=== PATIENT | female | born 1945 | race Hispanic/Latino ===

== ENCOUNTER 2017-10-31 18:53 | Emergency (ER) | payer OTHER ==
--- NOTE | 2017-10-31 20:36 | RAD ---
LEFT KNEE FOUR VIEWS: 10/31/17 HISTORY: Knee injury. There is severe arthritic changes in the knee. There is marked medial compartment narrowing. Also deg enerative changes of the patellofemoral and lateral compartments. There is no signs of fracture. The bones appear demineralized. IMPRESSION: Marked arthritic changes of the knee. POS: [facility]
[2017-10-31] MEDS ORDERED: Acetaminophen 500 MG TAB ONE (21:32)
== END 2017-10-31 21:48 | disposition home or self-care (01) ==
LOC: ERS 18:53
DX: M25.562 Pain in left knee (principal); E11.9 Type 2 diabetes mellitus without complications; E78.5 Hyperlipidemia, unspecified; I10 Essential (primary) hypertension; W18.30XA Fall on same level, unspecified, initial encounter

== ENCOUNTER 2018-03-02 15:04 | Outpatient (CLI) | payer MEDICARE, MEDICAID | END 2018-03-02 15:05 | disposition home or self-care (01) | LOC: BICMAMMO 15:04 | PROVIDERS: ATTEND Family Medicine | DX: Z12.31 Encounter for screening mammogram for malignant neoplasm of breast (principal); Z80.3 Family history of malignant neoplasm of breast | CPT/HCPCS: 77063; 77067 ==

== ENCOUNTER 2018-08-21 08:38 | Outpatient (CLI) | payer MEDICARE, MEDICAID ==
--- NOTE | 2018-08-21 10:49 | BD ---
DEXA BONE MINERAL DENSITY STUDY: HISTORY: Osteoporosis screening. Postmenopausal female. COMPARISON: None. BMD (g/cm2) T-SCORE Z-SCORE L1 0.718 -2.5 -0.4 L2 0.841 -1.7 0.6 L3 0.963 -1.1 1.4 L4 0.925 -1.2 1.3 TOTAL 0.853 -1.8 0.6 WHO CLASSIFICATION: Osteopenia. BMD (g/cm2) T-SCORE Z-SCORE LEFT FEMORAL NECK 0.062 -2.0 -0.1 TOTAL 0.790 -1.2 0.5 WHO CLASSIFICATION: Osteopenia. TEN-YEAR FRACTURE RISK: MAJOR OSTEOPOROTIC FRACTURE: 9.5% HIP FRACTURE: 2.4% IMPRESSION: Osteopenia with fracture risk as above. POS: [facility]
== END 2018-08-21 08:39 | disposition home or self-care (01) ==
LOC: BICMAMMO 08:38
PROVIDERS: ATTEND Internal Medicine Rheumatology
DX: Z13.820 Encounter for screening for osteoporosis (principal); M81.8 Other osteoporosis without current pathological fracture; M85.89 Other specified disorders of bone density and structure, multiple sites
CPT/HCPCS: 77080

== ENCOUNTER 2019-03-08 18:37 | Emergency (ER) | payer MEDICARE, MEDICAID ==
[2019-03-08] MEDS ORDERED: HYDROcodone/Acetaminophen 5/325 mg Tablet ONE (19:10)
--- NOTE | 2019-03-08 19:22 | RAD ---
3 views right ankle: 03/08/2019 COMPARISON: None HISTORY: Injury, trauma, pain FINDINGS: Lateral postoperative hardware of distal right tibia and fibula noted. Prominent lateral so ft tissue swelling. The bones appear demineralized. Talar dome and ankle mortise appear intact. No displaced fracture or evidence of dislocation. IMPRESSION: Prominent lateral soft tissue swelling. Osteopenia. No displaced fracture or dislocation seen.
--- NOTE | 2019-03-08 19:32 | RAD ---
Frontal and lateral imaging of right tibia/fibula: 03/08/2019 COMPARISON: 08/27/2015 HISTORY: Fall, trauma, pain FINDINGS: Extensive stable postoperative hardware noted within the distal right femur, proximal right tibia, and distal right fibula. No acute fracture or evidence of dislocation is seen. Old fracture deformities of the right tibia and fibula noted, stable. IMPRESSION: Extensive chronic findings as described above. No evidence for acute fracture or dislocat ion.
== END 2019-03-08 20:27 | disposition home or self-care (01) ==
LOC: ERS 18:37
DX: S90.01XA Contusion of right ankle, initial encounter (principal); E11.9 Type 2 diabetes mellitus without complications; E78.5 Hyperlipidemia, unspecified; I10 Essential (primary) hypertension; M10.9 Gout, unspecified; Z79.899 Other long term (current) drug therapy; Z79.84 Long term (current) use of oral hypoglycemic drugs; Z79.82 Long term (current) use of aspirin; W19.XXXA Unspecified fall, initial encounter

== ENCOUNTER 2022-05-31 09:51 | Observation (INO) | payer MEDICARE, MEDICAID ==
[2022-05-31] MEDS ORDERED: Piperacillin/Tazobactam 3.375 GM VIAL ONE ×2 (10:28→10:50)
[2022-05-31 10:43] LABS: #Basophils 0.1 thou/uL (0.0-0.2); #Eosinphils 0.4 thou/uL (0.0-0.7); #Lymphocytes 2.1 thou/uL (1.20-3.40); #Monocytes 0.5 thou/uL (0.11-0.59); #Neutrophils 5.9 thou/uL (1.40-6.50); %Basophils 0.6 % (0.0-1.0); %Eosinophils 4.4 % (0.0-10.0); %Lymphocytes 23.6 % (21.0-51.0); %Monocytes 5.8 % (0.0-10.0); %Neutrophils 65.6 % (42.0-75.0); Hemoglobin 12.3 g/dL (12.0-16.0); Mean Corpuscular HGB CONC 32.2 g/dL (32.0-36.0); Mean Corpuscular Hemoglobin 29.7 pg (27.0-31.0); Mean Corpuscular Volume 92.2 fL (78.0-98.0); Mean Platelet Volume 7.6 fL (7.4-10.4); Platelet Count 311 thou/uL (130-400); RBC Distribution Width 13.3 % (11.5-14.5); Red Blood Cell (RBC) Count 4.15 mill/uL (4.20-5.40)
[2022-05-31] MEDS ORDERED: Vancomycin 1 GM/200 ML BAG ONE ×2 (10:50→11:28)
[2022-05-31 10:56] LABS: PTT 47.1 sec (22.9-36.1); Prothrombin Time 13.4 sec (12.0-14.7)
[2022-05-31 11:00] LABS: ALT (SGPT) 34 U/L (8-55); AST (SGOT) 31 U/L (5-34); Albumin 4.1 g/dL (3.4-4.8); Alkaline Phosphatase 77 U/L (40-110); Anion Gap 14 mmol/L (10-20); BUN (Urea Nitrogen) 17 mg/dL (9.8-20.1); Bilirubin, Total 0.2 mg/dL (0.2-1.2); Calc. Creatinine Clearance 0 mL/min (70-130); Calcium 9.2 mg/dL (7.8-10.44); Carbon Dioxide 24 mmol/L (23-31); Chloride 97 mmol/L (98-107); Estimated GFR 53; Globulin 3.5 g/dL (2.4-3.5); Glucose 316 mg/dL (83-110); Potassium 4.4 mmol/L (3.5-5.1); Protein, Total 7.6 g/dL (5.8-8.1); Sodium 131 mmol/L (136-145)
[2022-05-31 12:57] LABS: Bacteria/HPF 4+ HPF (None Seen); Bilirubin Negative (Negative); Blood, Urine 2+ (Negative); Clarity Clear (Clear); Glucose, Urine (Dipstick) Greater than 1000 mg/dL (Negative); Ketone, Urine Negative (Negative); Leukocyte 75 Leu/uL (Negative); Nitrite 1+ (Negative); Protein, Urine (Dipstick) Negative (Neg-Trace); RBC/HPF 21-50 HPF (0-3); Specific Gravity, Urine 1.012 (1.002-1.036); Squamous Epithelial None Seen HPF (0-3); Urobilinogen Normal mg/dL (Less than 2)
[2022-05-31] MEDS ORDERED: Dextrose 5% in Water 1,000 ML IV PRN (13:20)
[2022-05-31] MEDS ORDERED: Dextrose 50% Abboject 50 ML SYRINGE SLOW IVP PRN (13:20)
[2022-05-31] MEDS ORDERED: Senokot S 8.6-50 MG TAB PO PRN (13:21)
[2022-05-31] MEDS ORDERED: Ondansetron ODT 4 MG TAB PO PRN (13:21)
[2022-05-31] MEDS ORDERED: Ondansetron PF 4 MG/2 ML Vial IVP PRN (13:21)
[2022-05-31 13:27] VITALS: BMI 28.7
[2022-05-31] MEDS: Sodium Chloride 0.9% 1,000 ML IV SCH (16:01)
[2022-05-31] MEDS: Piperacillin/Tazobactam 3.375 GM in Sodium Chloride 0.9% 100 ML IVPB SCH ×2 (16:02→23:11)
[2022-05-31] MEDS: HumaLOG 300 UNITS/3 ML VIAL SC PRN (16:07)
[2022-05-31] MEDS ORDERED: Heparin 1,000 UNITS/ML VIAL ONE (16:24)
[2022-05-31] MEDS: traMADol HCl 50 MG TAB PO PRN ×2 (18:15→23:09)
[2022-05-31] MEDS ORDERED: traMADol HCl 50 MG TAB PO PRN (21:00)
[2022-05-31] MEDS ORDERED: Cefepime 1 GM in Sodium Chloride 0.9% 100 ML IVPB SCH (21:00)
[2022-05-31] MEDS ORDERED: Vancomycin 1 GM in Premix Bag 1 BAG IVPB SCH (21:00)
[2022-05-31] MEDS: DULoxetine 30 MG CAP PO SCH (23:09)
[2022-05-31] MEDS: Colchicine 0.6 MG TAB PO SCH (23:10)
[2022-06-01 05:52] LABS: #Basophils 0.1 thou/uL (0.0-0.2); #Eosinphils 0.4 thou/uL (0.0-0.7); #Lymphocytes 1.9 thou/uL (1.20-3.40); #Monocytes 0.5 thou/uL (0.11-0.59); #Neutrophils 4.3 thou/uL (1.40-6.50); %Basophils 0.9 % (0.0-1.0); %Lymphocytes 26.3 % (21.0-51.0); %Monocytes 7.4 % (0.0-10.0); %Neutrophils 60.4 % (42.0-75.0); Hemoglobin 10.3 g/dL (12.0-16.0); Mean Corpuscular HGB CONC 32.6 g/dL (32.0-36.0); Mean Corpuscular Hemoglobin 29.4 pg (27.0-31.0); Mean Corpuscular Volume 90.3 fL (78.0-98.0); Mean Platelet Volume 7.8 fL (7.4-10.4); Platelet Count 270 thou/uL (130-400); Red Blood Cell (RBC) Count 3.51 mill/uL (4.20-5.40); White Blood Cell (WBC) Count 7.1 thou/uL (4.8-10.8)
[2022-06-01 06:09] LABS: Anion Gap 14 mmol/L (10-20); BUN (Urea Nitrogen) 12 mg/dL (9.8-20.1); Calc. Creatinine Clearance 70 mL/min (70-130); Calcium 8.6 mg/dL (7.8-10.44); Carbon Dioxide 22 mmol/L (23-31); Chloride 102 mmol/L (98-107); Estimated GFR 88; Glucose 115 mg/dL (83-110); Potassium 3.6 mmol/L (3.5-5.1); Sodium 134 mmol/L (136-145)
[2022-06-01] MEDS: Ferrous Sulfate 325 MG TAB PO SCH (08:16)
[2022-06-01] MEDS: Piperacillin/Tazobactam 3.375 GM in Sodium Chloride 0.9% 100 ML IVPB SCH ×2 (08:17→16:00)
[2022-06-01] MEDS: Cholecalciferol 1,000 UNITS (25 MCG) TAB PO SCH (08:18)
[2022-06-01] MEDS: Ezetimibe 10 MG TAB PO SCH (08:18)
[2022-06-01] MEDS: DULoxetine 30 MG CAP PO SCH ×2 (08:18→21:24)
[2022-06-01] MEDS: Amlodipine 5 MG TAB PO SCH (08:18)
[2022-06-01] MEDS: Allopurinol 100 MG TAB PO SCH (08:19)
[2022-06-01] MEDS: Lisinopril 20 MG TAB PO SCH (08:19)
[2022-06-01] MEDS: Colchicine 0.6 MG TAB PO SCH ×2 (08:19→21:24)
[2022-06-01] MEDS: predniSONE 1 MG TAB PO SCH (08:19)
[2022-06-01] MEDS: Aspirin 81 mg Enteric Coated Tablet PO SCH (08:20)
[2022-06-01] MEDS: Vit A,C & E/Lutein/Minerals Tablet PO SCH (08:29)
[2022-06-01] MEDS: traMADol HCl 50 MG TAB PO PRN ×2 (08:29→21:24)
[2022-06-01] MEDS ORDERED: Vancomycin HCl 750 MG in Sodium Chloride 0.9% 250 ML 250 ML IVPB SCH (11:00)
[2022-06-01] MEDS: Sodium Chloride 0.9% 1,000 ML IV SCH (14:10)
[2022-06-01] MEDS ORDERED: Rocuronium Bromide 10 MG/ML (10ML VIAL) ONE (14:16)
[2022-06-01] MEDS ORDERED: Dexamethasone 20 MG/5 ML VIAL ONE (14:16)
[2022-06-01] MEDS ORDERED: Ondansetron PF 4 MG/2 ML Vial ONE (14:16)
[2022-06-01] MEDS ORDERED: PROPOFOL 200 MG/20 ML VIAL ONE (14:16)
[2022-06-01] MEDS ORDERED: Lidocaine 1% PF 5 ML VIAL ONE (14:16)
[2022-06-01] MEDS ORDERED: fentaNYL Citrate/PF 100 MCG/2 ML SYRINGE ONE ×2 (15:19→16:52)
[2022-06-01] MEDS ORDERED: Neomycin-Polymyxin 1 ML AMP ONE (15:53)
[2022-06-01] MEDS ORDERED: SUGAMMADEX SODIUM 200 MG/2 ML VIAL ONE (16:39)
[2022-06-01] MEDS ORDERED: Fentanyl 100 MCG/2 ML VIAL ONE (16:57)
[2022-06-02] MEDS: Piperacillin/Tazobactam 3.375 GM in Sodium Chloride 0.9% 100 ML IVPB SCH ×3 (01:35→15:26)
[2022-06-02 06:20] LABS: #Lymphocytes 1.5 thou/uL (1.20-3.40); #Monocytes 0.4 thou/uL (0.11-0.59); #Neutrophils 6.4 thou/uL (1.40-6.50); %Basophils 0.2 % (0.0-1.0); %Eosinophils 0.1 % (0.0-10.0); %Lymphocytes 18.1 % (21.0-51.0); %Monocytes 4.2 % (0.0-10.0); %Neutrophils 77.4 % (42.0-75.0); Mean Corpuscular HGB CONC 33.4 g/dL (32.0-36.0); Mean Corpuscular Hemoglobin 30.3 pg (27.0-31.0); Mean Corpuscular Volume 90.7 fL (78.0-98.0); Mean Platelet Volume 7.9 fL (7.4-10.4); Platelet Count 234 thou/uL (130-400); Red Blood Cell (RBC) Count 3.28 mill/uL (4.20-5.40); White Blood Cell (WBC) Count 8.2 thou/uL (4.8-10.8)
[2022-06-02 06:41] LABS: Anion Gap 13 mmol/L (10-20); BUN (Urea Nitrogen) 8 mg/dL (9.8-20.1); Calc. Creatinine Clearance 74 mL/min (70-130); Calcium 8.5 mg/dL (7.8-10.44); Carbon Dioxide 22 mmol/L (23-31); Chloride 103 mmol/L (98-107); Estimated GFR 90; Glucose 198 mg/dL (83-110); Potassium 3.9 mmol/L (3.5-5.1); Sodium 134 mmol/L (136-145)
[2022-06-02] MEDS: Ferrous Sulfate 325 MG TAB PO SCH (09:58)
[2022-06-02] MEDS: Lisinopril 20 MG TAB PO SCH (09:58)
[2022-06-02] MEDS: Cholecalciferol 1,000 UNITS (25 MCG) TAB PO SCH (10:00)
[2022-06-02] MEDS: DULoxetine 30 MG CAP PO SCH ×2 (10:00→21:55)
[2022-06-02] MEDS: Ezetimibe 10 MG TAB PO SCH (10:01)
[2022-06-02] MEDS: Aspirin 81 mg Enteric Coated Tablet PO SCH (10:01)
[2022-06-02] MEDS: Amlodipine 5 MG TAB PO SCH (10:01)
[2022-06-02] MEDS: Allopurinol 100 MG TAB PO SCH (10:01)
[2022-06-02] MEDS: Colchicine 0.6 MG TAB PO SCH ×2 (10:01→21:55)
[2022-06-02] MEDS: Vit A,C & E/Lutein/Minerals Tablet PO SCH (10:02)
[2022-06-02] MEDS: predniSONE 1 MG TAB PO SCH (10:02)
[2022-06-02 10:35] LABS: Vancomycin, Trough 6.9 ug/mL
[2022-06-02] MEDS: Vancomycin 1 GM in Premix Bag 1 BAG IVPB SCH (11:31)
[2022-06-02] MEDS: traMADol HCl 50 MG TAB PO PRN (15:41)
[2022-06-03] MEDS: Cholecalciferol 1,000 UNITS (25 MCG) TAB PO SCH (08:58)
[2022-06-03] MEDS: Ferrous Sulfate 325 MG TAB PO SCH (08:58)
[2022-06-03] MEDS: Amlodipine 5 MG TAB PO SCH (08:58)
[2022-06-03] MEDS: predniSONE 1 MG TAB PO SCH (08:59)
[2022-06-03] MEDS: Allopurinol 100 MG TAB PO SCH (08:59)
[2022-06-03] MEDS: Colchicine 0.6 MG TAB PO SCH ×2 (08:59→21:59)
[2022-06-03] MEDS: Vit A,C & E/Lutein/Minerals Tablet PO SCH (09:00)
[2022-06-03] MEDS: Aspirin 81 mg Enteric Coated Tablet PO SCH (09:00)
[2022-06-03] MEDS: Lisinopril 20 MG TAB PO SCH (09:00)
[2022-06-03] MEDS: DULoxetine 30 MG CAP PO SCH ×2 (09:00→21:59)
[2022-06-03] MEDS: Ezetimibe 10 MG TAB PO SCH (09:00)
[2022-06-03] MEDS: traMADol HCl 50 MG TAB PO PRN (11:54)
[2022-06-03] MEDS: Vancomycin 1 GM in Premix Bag 1 BAG IVPB SCH (11:55)
[2022-06-03] MEDS: Acetaminophen 325 MG TAB PO PRN (16:04)
[2022-06-03] MEDS: HumaLOG 300 UNITS/3 ML VIAL SC PRN (17:38)
[2022-06-04] MEDS: Vit A,C & E/Lutein/Minerals Tablet PO SCH (08:23)
[2022-06-04] MEDS: DULoxetine 30 MG CAP PO SCH ×2 (08:23→21:15)
[2022-06-04] MEDS: Ezetimibe 10 MG TAB PO SCH (08:23)
[2022-06-04] MEDS: Lisinopril 20 MG TAB PO SCH (08:23)
[2022-06-04] MEDS: Aspirin 81 mg Enteric Coated Tablet PO SCH (08:23)
[2022-06-04] MEDS: Colchicine 0.6 MG TAB PO SCH ×2 (08:23→21:15)
[2022-06-04] MEDS: Ferrous Sulfate 325 MG TAB PO SCH (08:24)
[2022-06-04] MEDS: Cholecalciferol 1,000 UNITS (25 MCG) TAB PO SCH (08:24)
[2022-06-04] MEDS: Amlodipine 5 MG TAB PO SCH (08:24)
[2022-06-04] MEDS: predniSONE 1 MG TAB PO SCH (08:24)
[2022-06-04] MEDS: Allopurinol 100 MG TAB PO SCH (08:24)
[2022-06-04] MEDS: Acetaminophen 325 MG TAB PO PRN ×2 (10:43→23:11)
[2022-06-04] MEDS: traMADol HCl 50 MG TAB PO PRN ×2 (10:44→21:14)
[2022-06-04] MEDS: Vancomycin 1 GM in Premix Bag 1 BAG IVPB SCH (10:44)
[2022-06-04] MEDS: HumaLOG 300 UNITS/3 ML VIAL SC PRN ×3 (13:17→21:15)
[2022-06-04] MEDS: VANCOMYCIN 1.25 GM/250 ML BAG 1.25 GM in Premix Bag 1 BAG IVPB SCH (13:17)
[2022-06-05] MEDS: HumaLOG 300 UNITS/3 ML VIAL SC PRN ×4 (05:19→20:43)
[2022-06-05 05:55] LABS: #Eosinphils 0.6 thou/uL (0.0-0.7); #Lymphocytes 2.1 thou/uL (1.20-3.40); #Monocytes 0.6 thou/uL (0.11-0.59); #Neutrophils 4.7 thou/uL (1.40-6.50); %Basophils 0.3 % (0.0-1.0); %Eosinophils 7.6 % (0.0-10.0); %Lymphocytes 25.7 % (21.0-51.0); %Monocytes 7.4 % (0.0-10.0); Hemoglobin 9.7 g/dL (12.0-16.0); Mean Corpuscular HGB CONC 32.8 g/dL (32.0-36.0); Mean Corpuscular Hemoglobin 29.9 pg (27.0-31.0); Mean Corpuscular Volume 91.1 fL (78.0-98.0); Mean Platelet Volume 7.9 fL (7.4-10.4); Platelet Count 211 thou/uL (130-400); RBC Distribution Width 13.3 % (11.5-14.5); Red Blood Cell (RBC) Count 3.23 mill/uL (4.20-5.40)
[2022-06-05 06:04] LABS: Anion Gap 14 mmol/L (10-20); BUN (Urea Nitrogen) 11 mg/dL (9.8-20.1); Calc. Creatinine Clearance 79 mL/min (70-130); Calcium 8.5 mg/dL (7.8-10.44); Carbon Dioxide 25 mmol/L (23-31); Chloride 101 mmol/L (98-107); Estimated GFR 91; Glucose 186 mg/dL (83-110); Potassium 3.2 mmol/L (3.5-5.1); Sodium 137 mmol/L (136-145)
[2022-06-05] MEDS: Ferrous Sulfate 325 MG TAB PO SCH (08:41)
[2022-06-05] MEDS: predniSONE 1 MG TAB PO SCH (08:41)
[2022-06-05] MEDS: Amlodipine 5 MG TAB PO SCH (08:41)
[2022-06-05] MEDS: Lisinopril 20 MG TAB PO SCH (08:41)
[2022-06-05] MEDS: Vit A,C & E/Lutein/Minerals Tablet PO SCH (08:41)
[2022-06-05] MEDS: Cholecalciferol 1,000 UNITS (25 MCG) TAB PO SCH (08:41)
[2022-06-05] MEDS: Colchicine 0.6 MG TAB PO SCH ×2 (08:41→20:43)
[2022-06-05] MEDS: Aspirin 81 mg Enteric Coated Tablet PO SCH (08:41)
[2022-06-05] MEDS: Allopurinol 100 MG TAB PO SCH (08:42)
[2022-06-05] MEDS: Ezetimibe 10 MG TAB PO SCH (08:42)
[2022-06-05] MEDS: DULoxetine 30 MG CAP PO SCH ×2 (08:42→20:43)
[2022-06-05] MEDS ORDERED: Potassium Chloride 20 MEQ TAB PO SCH (10:00)
[2022-06-05] MEDS: VANCOMYCIN 1.25 GM/250 ML BAG 1.25 GM in Premix Bag 1 BAG IVPB SCH (12:07)
[2022-06-05] MEDS: traMADol HCl 50 MG TAB PO PRN ×2 (14:23→20:48)
[2022-06-06] MEDS: HumaLOG 300 UNITS/3 ML VIAL SC PRN ×4 (06:02→21:23)
[2022-06-06 06:43] LABS: #Eosinphils 0.6 thou/uL (0.0-0.7); #Monocytes 0.6 thou/uL (0.11-0.59); #Neutrophils 5.3 thou/uL (1.40-6.50); %Eosinophils 6.7 % (0.0-10.0); %Lymphocytes 23.3 % (21.0-51.0); %Monocytes 7.5 % (0.0-10.0); %Neutrophils 62.5 % (42.0-75.0); Hemoglobin 9.6 g/dL (12.0-16.0); Mean Corpuscular Hemoglobin 30.3 pg (27.0-31.0); Mean Corpuscular Volume 91.6 fL (78.0-98.0); Mean Platelet Volume 8.1 fL (7.4-10.4); Platelet Count 200 thou/uL (130-400); RBC Distribution Width 14.1 % (11.5-14.5); Red Blood Cell (RBC) Count 3.18 mill/uL (4.20-5.40); White Blood Cell (WBC) Count 8.4 thou/uL (4.8-10.8)
[2022-06-06 07:01] LABS: Anion Gap 12 mmol/L (10-20); BUN (Urea Nitrogen) 10 mg/dL (9.8-20.1); Calc. Creatinine Clearance 74 mL/min (70-130); Calcium 8.7 mg/dL (7.8-10.44); Carbon Dioxide 26 mmol/L (23-31); Chloride 99 mmol/L (98-107); Estimated GFR 90; Glucose 217 mg/dL (83-110); Potassium 3.4 mmol/L (3.5-5.1); Sodium 134 mmol/L (136-145)
[2022-06-06] MEDS: Vit A,C & E/Lutein/Minerals Tablet PO SCH (09:53)
[2022-06-06] MEDS: Colchicine 0.6 MG TAB PO SCH ×2 (09:53→20:54)
[2022-06-06] MEDS: Ezetimibe 10 MG TAB PO SCH (09:53)
[2022-06-06] MEDS: Amlodipine 5 MG TAB PO SCH (09:54)
[2022-06-06] MEDS: Cholecalciferol 1,000 UNITS (25 MCG) TAB PO SCH (09:54)
[2022-06-06] MEDS: Ferrous Sulfate 325 MG TAB PO SCH (09:54)
[2022-06-06] MEDS: Aspirin 81 mg Enteric Coated Tablet PO SCH (09:55)
[2022-06-06] MEDS: predniSONE 1 MG TAB PO SCH (09:56)
[2022-06-06] MEDS: Allopurinol 100 MG TAB PO SCH (09:56)
[2022-06-06] MEDS: DULoxetine 30 MG CAP PO SCH ×2 (09:56→21:18)
[2022-06-06] MEDS: Lisinopril 20 MG TAB PO SCH (09:58)
[2022-06-06 10:37] LABS: Vancomycin, Trough 11.4 ug/mL
[2022-06-06] MEDS: VANCOMYCIN 1.25 GM/250 ML BAG 1.25 GM in Premix Bag 1 BAG IVPB SCH (11:58)
[2022-06-06] MEDS: Vancomycin 1.5 GRAM/300 ML BAG 1.5 GM in Premix Bag 1 BAG IVPB SCH (12:43)
[2022-06-06] MEDS: traMADol HCl 50 MG TAB PO PRN ×2 (13:08→21:18)
[2022-06-07] MEDS: HumaLOG 300 UNITS/3 ML VIAL SC PRN ×5 (06:42→20:50)
[2022-06-07 07:08] LABS: #Basophils 0.1 thou/uL (0.0-0.2); #Eosinphils 0.4 thou/uL (0.0-0.7); #Lymphocytes 1.5 thou/uL (1.20-3.40); #Monocytes 0.6 thou/uL (0.11-0.59); #Neutrophils 4.8 thou/uL (1.40-6.50); %Basophils 0.8 % (0.0-1.0); %Eosinophils 5.7 % (0.0-10.0); %Lymphocytes 20.2 % (21.0-51.0); %Monocytes 8.6 % (0.0-10.0); %Neutrophils 64.7 % (42.0-75.0); Mean Corpuscular HGB CONC 33.3 g/dL (32.0-36.0); Mean Corpuscular Hemoglobin 30.9 pg (27.0-31.0); Mean Corpuscular Volume 92.8 fL (78.0-98.0); Mean Platelet Volume 8.2 fL (7.4-10.4); Platelet Count 193 thou/uL (130-400); RBC Distribution Width 14.1 % (11.5-14.5); Red Blood Cell (RBC) Count 3.24 mill/uL (4.20-5.40); White Blood Cell (WBC) Count 7.4 thou/uL (4.8-10.8)
[2022-06-07 07:22] LABS: Anion Gap 14 mmol/L (10-20); BUN (Urea Nitrogen) 10 mg/dL (9.8-20.1); Calc. Creatinine Clearance 71 mL/min (70-130); Calcium 8.6 mg/dL (7.8-10.44); Carbon Dioxide 26 mmol/L (23-31); Chloride 96 mmol/L (98-107); Estimated GFR 89; Glucose 168 mg/dL (83-110); Potassium 3.1 mmol/L (3.5-5.1); Sodium 133 mmol/L (136-145)
[2022-06-07] MEDS: Ferrous Sulfate 325 MG TAB PO SCH (08:29)
[2022-06-07] MEDS: predniSONE 1 MG TAB PO SCH (08:29)
[2022-06-07] MEDS: Cholecalciferol 1,000 UNITS (25 MCG) TAB PO SCH (08:29)
[2022-06-07] MEDS: Aspirin 81 mg Enteric Coated Tablet PO SCH (08:30)
[2022-06-07] MEDS: Allopurinol 100 MG TAB PO SCH (08:30)
[2022-06-07] MEDS: Colchicine 0.6 MG TAB PO SCH (08:30)
[2022-06-07] MEDS: Amlodipine 5 MG TAB PO SCH (08:30)
[2022-06-07] MEDS: Lisinopril 20 MG TAB PO SCH (08:30)
[2022-06-07] MEDS: Ezetimibe 10 MG TAB PO SCH (08:30)
[2022-06-07] MEDS: DULoxetine 30 MG CAP PO SCH ×2 (08:30→20:48)
[2022-06-07] MEDS: Vit A,C & E/Lutein/Minerals Tablet PO SCH (08:35)
[2022-06-07] MEDS: traMADol HCl 50 MG TAB PO PRN (11:33)
[2022-06-07] MEDS: Vancomycin 1.5 GRAM/300 ML BAG 1.5 GM in Premix Bag 1 BAG IVPB SCH (12:47)
[2022-06-07] MEDS: Potassium Chloride 20 MEQ TAB PO SCH ×2 (12:48→17:38)
[2022-06-08] MEDS: HumaLOG 300 UNITS/3 ML VIAL SC PRN ×4 (06:45→19:55)
[2022-06-08 07:35] LABS: #Eosinphils 0.4 thou/uL (0.0-0.7); #Lymphocytes 1.7 thou/uL (1.20-3.40); #Monocytes 0.7 thou/uL (0.11-0.59); #Neutrophils 3.1 thou/uL (1.40-6.50); %Basophils 0.6 % (0.0-1.0); %Eosinophils 6.5 % (0.0-10.0); %Lymphocytes 28.4 % (21.0-51.0); %Monocytes 11.9 % (0.0-10.0); %Neutrophils 52.7 % (42.0-75.0); Hemoglobin 9.8 g/dL (12.0-16.0); Mean Corpuscular HGB CONC 33.8 g/dL (32.0-36.0); Mean Corpuscular Hemoglobin 30.4 pg (27.0-31.0); Mean Platelet Volume 8.2 fL (7.4-10.4); Platelet Count 173 thou/uL (130-400); Red Blood Cell (RBC) Count 3.23 mill/uL (4.20-5.40); White Blood Cell (WBC) Count 5.9 thou/uL (4.8-10.8)
[2022-06-08 07:51] LABS: Anion Gap 13 mmol/L (10-20); BUN (Urea Nitrogen) 8 mg/dL (9.8-20.1); Calc. Creatinine Clearance 72 mL/min (70-130); Calcium 8.7 mg/dL (7.8-10.44); Carbon Dioxide 25 mmol/L (23-31); Chloride 99 mmol/L (98-107); Estimated GFR 89; Glucose 214 mg/dL (83-110); Sodium 133 mmol/L (136-145)
[2022-06-08] MEDS: Ferrous Sulfate 325 MG TAB PO SCH (08:21)
[2022-06-08] MEDS: predniSONE 1 MG TAB PO SCH (08:21)
[2022-06-08] MEDS: Cholecalciferol 1,000 UNITS (25 MCG) TAB PO SCH (08:21)
[2022-06-08] MEDS: Ezetimibe 10 MG TAB PO SCH (08:22)
[2022-06-08] MEDS: Vit A,C & E/Lutein/Minerals Tablet PO SCH (08:22)
[2022-06-08] MEDS: Allopurinol 100 MG TAB PO SCH (08:22)
[2022-06-08] MEDS: Aspirin 81 mg Enteric Coated Tablet PO SCH (08:22)
[2022-06-08] MEDS: Lisinopril 20 MG TAB PO SCH (08:22)
[2022-06-08] MEDS: DULoxetine 30 MG CAP PO SCH ×2 (08:22→19:49)
[2022-06-08] MEDS: Amlodipine 5 MG TAB PO SCH (08:22)
[2022-06-08 11:34] LABS: Vancomycin, Trough 22.6 ug/mL
[2022-06-08] MEDS ORDERED: Loperamide HCl 2 MG CAP PO PRN (13:24)
[2022-06-08] MEDS: Vancomycin 1 GM in Premix Bag 1 BAG IVPB SCH (13:26)
[2022-06-08] MEDS: traMADol HCl 50 MG TAB PO PRN (13:35)
[2022-06-09 06:08] LABS: #Basophils 0.1 thou/uL (0.0-0.2); #Eosinphils 0.4 thou/uL (0.0-0.7); #Lymphocytes 1.6 thou/uL (1.20-3.40); #Monocytes 0.6 thou/uL (0.11-0.59); #Neutrophils 3.6 thou/uL (1.40-6.50); %Basophils 0.8 % (0.0-1.0); %Eosinophils 7.2 % (0.0-10.0); %Lymphocytes 25.2 % (21.0-51.0); %Monocytes 9.9 % (0.0-10.0); %Neutrophils 56.9 % (42.0-75.0); Hemoglobin 9.2 g/dL (12.0-16.0); Mean Corpuscular HGB CONC 31.9 g/dL (32.0-36.0); Mean Corpuscular Hemoglobin 29.2 pg (27.0-31.0); Mean Corpuscular Volume 91.6 fL (78.0-98.0); Mean Platelet Volume 8.7 fL (7.4-10.4); Platelet Count 184 thou/uL (130-400); RBC Distribution Width 14.2 % (11.5-14.5); Red Blood Cell (RBC) Count 3.15 mill/uL (4.20-5.40); White Blood Cell (WBC) Count 6.3 thou/uL (4.8-10.8)
[2022-06-09 06:18] LABS: Anion Gap 14 mmol/L (10-20); BUN (Urea Nitrogen) 12 mg/dL (9.8-20.1); Calc. Creatinine Clearance 51 mL/min (70-130); Calcium 8.6 mg/dL (7.8-10.44); Carbon Dioxide 25 mmol/L (23-31); Chloride 97 mmol/L (98-107); Estimated GFR 61; Glucose 188 mg/dL (83-110); Potassium 3.5 mmol/L (3.5-5.1); Sodium 132 mmol/L (136-145)
[2022-06-09] MEDS: Vit A,C & E/Lutein/Minerals Tablet PO SCH (08:27)
[2022-06-09] MEDS: Ferrous Sulfate 325 MG TAB PO SCH (08:27)
[2022-06-09] MEDS: DULoxetine 30 MG CAP PO SCH ×2 (08:28→20:16)
[2022-06-09] MEDS: Ezetimibe 10 MG TAB PO SCH (08:28)
[2022-06-09] MEDS: Amlodipine 5 MG TAB PO SCH (08:28)
[2022-06-09] MEDS: Allopurinol 100 MG TAB PO SCH (08:28)
[2022-06-09] MEDS: Aspirin 81 mg Enteric Coated Tablet PO SCH (08:28)
[2022-06-09] MEDS: Lisinopril 20 MG TAB PO SCH (08:28)
[2022-06-09] MEDS: Cholecalciferol 1,000 UNITS (25 MCG) TAB PO SCH (08:28)
[2022-06-09] MEDS: predniSONE 1 MG TAB PO SCH (08:30)
[2022-06-09] MEDS: Acetaminophen 325 MG TAB PO PRN (10:44)
[2022-06-09] MEDS: Vancomycin 1 GM in Premix Bag 1 BAG IVPB SCH (13:05)
[2022-06-09] MEDS: HumaLOG 300 UNITS/3 ML VIAL SC PRN ×3 (13:11→22:15)
[2022-06-10 04:58] LABS: Anion Gap 14 mmol/L (10-20); BUN (Urea Nitrogen) 14 mg/dL (9.8-20.1); Calc. Creatinine Clearance 49 mL/min (70-130); Calcium 8.8 mg/dL (7.8-10.44); Carbon Dioxide 25 mmol/L (23-31); Chloride 97 mmol/L (98-107); Estimated GFR 58; Glucose 198 mg/dL (83-110); Potassium 3.3 mmol/L (3.5-5.1); Sodium 133 mmol/L (136-145)
[2022-06-10] MEDS: Ferrous Sulfate 325 MG TAB PO SCH (08:10)
[2022-06-10] MEDS: Acetaminophen 325 MG TAB PO PRN (08:10)
[2022-06-10] MEDS: Ezetimibe 10 MG TAB PO SCH (08:10)
[2022-06-10] MEDS: predniSONE 1 MG TAB PO SCH (08:10)
[2022-06-10] MEDS: Cholecalciferol 1,000 UNITS (25 MCG) TAB PO SCH (08:10)
[2022-06-10] MEDS: Aspirin 81 mg Enteric Coated Tablet PO SCH (08:10)
[2022-06-10] MEDS: Amlodipine 5 MG TAB PO SCH (08:11)
[2022-06-10] MEDS: Allopurinol 100 MG TAB PO SCH (08:11)
[2022-06-10] MEDS: Lisinopril 20 MG TAB PO SCH (08:11)
[2022-06-10] MEDS: DULoxetine 30 MG CAP PO SCH (08:11)
[2022-06-10] MEDS: Vit A,C & E/Lutein/Minerals Tablet PO SCH (08:12)
[2022-06-10] MEDS ORDERED: Potassium Chloride 20 MEQ TAB PO SCH (08:30)
[2022-06-10] MEDS: Vancomycin 1 GM in Premix Bag 1 BAG IVPB SCH ×2 (11:17→12:39)
[2022-06-10 12:04] LABS: Vancomycin, Trough 39.6 ug/mL
[2022-06-10] MEDS: HumaLOG 300 UNITS/3 ML VIAL SC PRN (13:07)
[2022-06-10 14:40] VITALS: BP 152/72; TEMP 98.3
[2022-06-11] MEDS ORDERED: Vancomycin HCl 500 MG in Sodium Chloride 0.9% 100 ML IVPB SCH (12:00)
== END 2022-06-10 15:06 ==
LOC: ERS 09:51 → T4-A 12:10 → INTOOBSV 12:10
PROVIDERS: ADMIT Internal Medicine; ATTEND Internal Medicine
PROC: 0QPG04Z Removal of Internal Fixation Device from Right Tibia, Open Approach (ICD-10-PCS; principal; 2022-06-01)
PROC: 0QPJ04Z Removal of Internal Fixation Device from Right Fibula, Open Approach (ICD-10-PCS; 2022-06-01)
PROC: 2W3QX1Z Immobilization of Right Lower Leg using Splint (ICD-10-PCS; 2022-06-01)
PROC: 02HV33Z Insertion of Infusion Device into Superior Vena Cava, Percutaneous Approach (ICD-10-PCS; 2022-06-03)
DX: T84.622A Infection and inflammatory reaction due to internal fixation device of right tibia, initial encounter (principal); T84.624A Infection and inflammatory reaction due to internal fixation device of right fibula, initial encounter; M86.9 Osteomyelitis, unspecified; B95.62 Methicillin resistant Staphylococcus aureus infection as the cause of diseases classified elsewhere; S82.201K Unspecified fracture of shaft of right tibia, subsequent encounter for closed fracture with nonunion; E11.43 Type 2 diabetes mellitus with diabetic autonomic (poly)neuropathy; K31.84 Gastroparesis; I10 Essential (primary) hypertension; M1A.9XX0 Chronic gout, unspecified, without tophus (tophi); E87.6 Hypokalemia; E78.5 Hyperlipidemia, unspecified; M81.0 Age-related osteoporosis without current pathological fracture; F03.90 Unspecified dementia, unspecified severity, without behavioral disturbance, psychotic disturbance, mood disturbance, and anxiety; E87.1 Hypo-osmolality and hyponatremia; N39.0 Urinary tract infection, site not specified; B96.20 Unspecified Escherichia coli [E. coli] as the cause of diseases classified elsewhere; M85.80 Other specified disorders of bone density and structure, unspecified site; H91.90 Unspecified hearing loss, unspecified ear; M17.12 Unilateral primary osteoarthritis, left knee; Z74.01 Bed confinement status; Z86.12 Personal history of poliomyelitis; Z79.52 Long term (current) use of systemic steroids; Z79.810 Long term (current) use of selective estrogen receptor modulators (SERMs); Z79.82 Long term (current) use of aspirin; Z79.84 Long term (current) use of oral hypoglycemic drugs; Z79.899 Other long term (current) drug therapy; Z88.1 Allergy status to other antibiotic agents; Z96.651 Presence of right artificial knee joint; Z20.822 Contact with and (suspected) exposure to COVID-19; Y79.3 Surgical instruments, materials and orthopedic devices (including sutures) associated with adverse incidents
CPT/HCPCS: 36415; 36416; 36569; 51701; 71045; 76000; 80048; 80053; 80202; 81003; 81015; 83605; 85025; 85610; 85730; 86140; 87040; 87070; 87077; 87086; 87186; 87205; 87324; 87449; 93005; 94760; 96365; 96367; 97139; C1751; J1100; J1644; J1815; J2405; J2543; J2704; J3010; J3370; J3490; J7050; J7512; U0003; U0005